=== PATIENT | male | born 2000 | race Caucasian/White ===

== ENCOUNTER → 2020-06-21 | Outpatient (CLI) | payer BC ==
--- NOTE | 2020-06-21 11:41 | CT ---
EXAMINATION TYPE: CT soft tissue neck wo con DATE OF EXAM: 06/21/2020 COMPARISON: None HISTORY: Lump under chin CT DLP: 465.10 mGycm CONTRAST: Patient injected with 0 mL of Isovue 300. TECHNIQUE: Axial images at 3 mm thick sections. Reconstructed images in the coronal plane and sagitt al plane are reviewed. FINDINGS: Limited CT sections are obtained the lung apices. The lung apices appear clear. CT neck: The torus tubarius and fossa of Rosenmuller are normal. Space Technologist spaces are normal. Para nasal sinuses and mastoid air cells are clear. Parotid glands appear normal and symmetrical. Submandibular glands, are normal. Parapharyngeal spac es are normal. No suspicious adenopathy is evident. Within the submental space just right of midline near the apex of the jaw is a 1.9 x 2.7 cm hypodense area of previous appears well-circumscribed. This measures approximately 20 Hounsfield units. This c orresponds to the area marked by the BB. Cystlike structure appears to be present. Submental cyst in the subcutaneous tissue. Dermoid could be considered. A ranula could be considered. Thyroglossal duct cyst could be considered. Lymphatic abnormality such as a lymphocele, could be considered The hypopharynx appears within normal limits. Vocal cord level appear symmetrical. Thyroid as visualized is normal. Osseous structures are normal. IMPRESSIONS: 1. Submental cyst corresponding to the palpable region in the submental space just right of midline.
== END | disposition home or self-care (01) ==
LOC: RADCTMAIN 10:51
PROVIDERS: ATTEND Nurse Practitioner Adult Health
DX: R22.1 Localized swelling, mass and lump, neck (principal)
CPT/HCPCS: 70490